=== PATIENT | female | born 1980 | race Caucasian/White ===

== ENCOUNTER 2016-10-09 13:23 | Emergency (ER) | payer SELFPAY ==
[~2016-10-09] VITALS: Ht 167.6 cm; Wt 86.0 kg
[~2016-10-09 13:23] MED LIST: LEVO100T87 PO
[2016-10-09 13:27] VITALS: Ht 167.6 cm; Wt 86.0 kg
== END 2016-10-09 14:44 | disposition left against medical advice (07) ==
LOC: FTE 13:23
DX: Z53.21 Procedure and treatment not carried out due to patient leaving prior to being seen by health care provider (principal)

== ENCOUNTER 2019-01-18 10:13 | Emergency (ER) | payer OTHER ==
[~2019-01-18] VITALS: Ht 162.6 cm; Wt 89.6 kg
[~2019-01-18 10:13] MED LIST changes: +IBUP-1542 PO; +LEVO100T8 PO; -LEVO100T87 PO
[2019-01-18 10:16] VITALS: BP 115/68; PULSE 91; RESP 16; Ht 162.6 cm; Wt 89.6 kg
[2019-01-18] MEDS ORDERED: KETOROLAC 30 MG INJ IM STA (10:44)
--- NOTE | 2019-01-18 16:24 | ERD ---
ER Documentation Chief Complaint Chief Complaint b/l hand numbness /pain x 1 week HPI Is a 38-year-old female presented to ED for bilateral hand numbness x1 week. Patient states she notes her symptoms are a week ago and may or worse when she is working. Patient states that some mornings she wakes up and she has numbness and tingling in them and that by the end of the day her hands are better. Patient states the pain is about a 6 out of 10. Patient states this never happened to her before. Patient states her only past medical history is thyroid issues which she is on medication for rate patient denies any allergies to medications. ROS All systems reviewed and are negative except as per history of present illness. Medications Home Meds Active Scripts Ibuprofen* (Motrin*) 600 Mg Tab, 600 MG PO Q6H PRN for PAIN AND OR ELEVATED TEMP, #30 TAB Prov:JAY FOX PA-C 01/18/19 Reported Medications Levothyroxine Sodium* (Levothyroxine Sodium*) 100 Mcg Tablet, 100 MCG PO AC BREAKFAST, TAB 09/26/14 Allergies Allergies: Coded Allergies: kiwi (Verified Allergy, Mild, 09/26/14) peach (Verified Allergy, Mild, 09/26/14) PMhx/Soc History of Surgery: Yes (Appy;) Anesthesia Reaction: No Hx Neurological Disorder: No Hx Respiratory Disorders: No Hx Cardiac Disorders: No Hx Psychiatric Problems: No Hx Miscellaneous Medical Probl: Yes (Hypothyroidism) Hx Alcohol Use: No Hx Substance Use: No Hx Tobacco Use: No Smoking Status: Never smoker FmHx Family History: No diabetes, No coronary disease, No other Physical Exam Vitals Vital Signs Date Temp Pulse Resp B/P (MAP) Pulse Ox O2 O2 Flow FiO2 Time Delivery Rate 01/18/19 99.1 91 16 115/68 99 10:16 (84) Physical Exam GENERAL: Moderate Distress CHEST: Clear to auscultation bilaterally. There are no rales, wheezes or rhonchi. HEART: Regular rate and rhythm. No murmurs, clicks, rubs or gallops. EXTREMITIES: Bilateral wrists are nonerythematous, non swollen, nontender to palpation patient has good range of motion good pulses good sensation in the extremity. They do not appear hot to the touch. Tinel's test was performed and provoked the patient's symptoms bilaterally. no signs of open fractures or exposure of soft tissue. No skin pallor noted. Patient has intact gross motor function and distal pulses are present and equal bilaterally. NEUROLOGIC: Motor strength is 5 out of 5 strength in upper extremity bilaterally. Sensation grossly intact. Results 24 hrs Laboratory Tests Test 01/18/19 10:59 POC Beta HCG, Qualitative NEGATIVE Current Medications Medications Dose Sig/Ines Start Time Status Last (Trade) Ordered Route PRN Stop Time Admin Dose Reason Admin Ketorolac 30 mg ONCE STAT 01/18/19 DC 01/18/19 Tromethamine IM 10:44 11:01 (Toradol) 01/18/19 10:45 Procedures/MDM ED course: The patient was stable throughout the ED course. The patient and/or family informed of laboratory and diagnostic imaging results throughout the ED course. Medications given in ER: Toradol Patient tolerated medication well with no adverse reactions. Patient reported improvement in pain. Medical decision making: Is a 38-year-old female presented to the ED for bilateral wrist pain. Patient's physical exam was unremarkable except for pain provoked during Tinel's test bilaterally. Patient's joints were not hot and swollen. Patient denies any traumatic injury. The patient is on IV drug user. The patient works with her hands and states that mechanical movement with her wrist aggravates this. Patient remained neurovascular intact during the examination patient was given Toradol in the ED patient states that at home ibuprofen has helped just a little bit. Patient symptoms are most consistent with carpal tunnel syndrome. At this time I have low suspicion for compartment syndrome, osteomyelitis, neurovascular injury. Upon reexamination the patient reports improvement in pain and symptoms. Advised the patient she needs follow-up with her primary care provid er and may need to get physical therapy for this condition. Patient understands and is in agreement to the treatment plan. I advised the patient if symptoms worsen she can always return to ED otherwise continue follow-up care with primary care provider in 1 to 2 days. Patient is agreement treatment plan all questions were answered upon discharge Prescription for home: Motrin I have discussed with the patient proper use and common side effects to expert with the medication . I advised the patient/family to speak with the pharmacist dispensing the medication to be advised of any potential drug interactions with other medication or supplements they may be taking. Discharge: At this time, patient is stable for discharge and outpatient management. I have instructed the patient to follow-up with his\her primary care physician in 1 to 2 days. I have discussed with the patient the possibility of needing to see a specialist for further work-up and imaging studies if symptoms persist. I have instructed the patient to promptly return to the ER for any new or worsening symptoms including increased pain, fever, nausea, vomiting, weakness or LOC. The patient and\or family expressed understanding of and agreement with this plan. All questions were answered. Home care instructions were provided. Disclaimer: Inadvertent spelling and grammatical errors are likely due to EHR\dictation software use and do not reflect on the overall quality of patient care. Also, please note that the electronic time recorded on the note does not necessarily reflect the actual time of the patient encounter. Departure Diagnosis: Primary Impression: Carpal tunnel syndrome, bilateral Condition: Stable Patient Instructions: Carpal Tunnel Syndrome Prevention Tips, Carpal Tunnel Referrals: [facility] YOU HAVE RECEIVED A MEDICAL SCREENING EXAM AND THE RESULTS INDICATE THAT YOU DO NOT HAVE A CONDITION THAT REQUIRES URGENT TREATMENT IN THE EMERGENCY DEPARTMENT. FURTHER EVALUATION AND TREATMENT OF YOUR CONDITION CAN WAIT UNTIL YOU ARE SEEN IN YOUR DOCTORS OFFICE WITHIN THE NEXT 1-2 DAYS. IT IS YOUR RESPONSIBILITY TO MAKE AN APPOINTMENT FOR FOLOW-UP CARE. IF YOU HAVE A PRIMARY DOCTOR --you should call your primary doctor and schedule an appointment IF YOU DO NOT HAVE A PRIMARY DOCTOR YOU CAN CALL OUR PHYSICIAN REFERRAL HOTLINE AT IF YOU CAN NOT AFFORD TO SEE A PHYSICIAN YOU CAN CHOSE FROM THE FOLLOWING [facility] [address] [facility]. [facility] [address] [facility] [address] [facility] [facility] [address] [facility] [facility] [address]. [facility]. [address] [facility]. [facility] YOU HAVE RECEIVED A MEDICAL SCREENING EXAM AND THE RESULTS INDICATE THAT YOU DO NOT HAVE A CONDITION THAT REQUIRES URGENT TREATMENT IN THE EMERGENCY DEPARTMENT. FURTHER EVALUATION AND TREATMENT OF YOUR CONDITION CAN WAIT UNTIL YOU ARE SEEN IN YOUR DOCTORS OFFICE WITHIN THE NEXT 1-2 DAYS. IT IS YOUR RESPONSIBILITY TO MAKE AN APPOINTMENT FOR FOLOW-UP CARE. IF YOU HAVE A PRIMARY DOCTOR --you should call your primary doctor and schedule and appointment IF YOU DO NOT HAVE A PRIMARY DOCTOR YOU CAN CALL OUR PHYSICIAN REFERRAL HOTLINE AT . IF YOU CAN NOT AFFORD TO SEE A PHYSICIAN YOU CAN CHOSE FROM THE FOLLOWING [facility] INSTITUTIONS: [facility] [address] [place] [address] [facility] [address] [place], [place] [id number] [place] [address] [address] [place] [address] [facility] Additional Instructions: Call your primary care doctor TOMORROW for an appointment during the next 1-2 d ays.See the doctor sooner or return here if your condition worsens before your appointment time. JAY FOX PA-C Jan 18, 2019 16:24
== END 2019-01-18 11:14 | disposition home or self-care (01) ==
LOC: FTE 10:13
DX: G56.03 Carpal tunnel syndrome, bilateral upper limbs (principal); E03.9 Hypothyroidism, unspecified
CPT/HCPCS: 81025; 96372; J1885; Z7502